=== PATIENT | female | born 1965 | race Caucasian/White ===

== ENCOUNTER → 2018-11-02 | Outpatient (CLI) | payer OTHER ==
--- NOTE | 2018-11-02 15:17 | XR ---
Lumbosacral spine HISTORY: Low back pain 5 views of lumbosacral spine There is no evident spondylolysis or spondylolisthesis. Multilevel spondylosis is present. Loss of di sc height at the intervertebral levels especially L4-5 is noted. Some sclerosis present in the tube builder airplane ior elements compatible with facet arthropathy. Lumbar vertebral bodies show preserved height and bon e mineralization. IMPRESSION: Degenerative disc disease and facet arthropathy.
== END ==
LOC: RADXRYALE 13:31
PROVIDERS: ATTEND Physician Assistant Medical
DX: M51.36 Other intervertebral disc degeneration, lumbar region (principal); M46.96 Unspecified inflammatory spondylopathy, lumbar region
CPT/HCPCS: 72110

== ENCOUNTER → 2018-11-18 | Day surgery (SDC) | payer OTHER ==
[2018-11-15 11:06] VITALS: BMI 27.4
[~2018-11-18] MED LIST: LACTATED RINGERS 1,000 ML IV SCH; LIDOCAINE 1% 20 ML VIAL (10MG/ML) FOR IV START INTRADERMA ONE; LIDOCAINE 1% INJ 10MG/ML (20 ML MDV) ONE; PROPOFOL 10 MG/ML 20 ML VIAL IV ONE
[2018-11-18 10:05] VITALS: RESP 16; TEMP 98.6
--- NOTE | 2018-11-18 11:06 | P.PCN ---
Date of Procedure: 11/18/18 Description of Procedure: BRIEF HISTORY: Patient is a 53-year-old pleasant female scheduled for an elective colonoscopy as a part of high risk colon cancer screening. She reports a family history of colorectal cancer in her father diagnosed in his 60s as well as her to paternal uncles who both past from colon cancer. She denies any change in bowel habits, constipation, diarrhea, melena, unintentional weight loss or blood per rectum. No prior colonoscopy. PROCEDURE PERFORMED: Colonoscopy with polypectomy. PREOPERATIVE DIAGNOSIS: High risk colon cancer screening, family history of colon cancer. ESTIMATED BLOOD LOSS: Minimal. IV sedation per Anesthesia. PROCEDURE: After informed consent was obtained, the patient, was brought into the endoscopy unit. IV sedation was administered by Anesthesia under continuous monitoring. Digital rectal examination was normal. Initially the Olympus CF-190 flexible video colonoscope was then inserted in the rectum, gradually advanced into the cecum without any difficulty. Careful examination was performed as the scope was gradually being withdrawn. Ileocecal valve and the appendiceal orifice were visualized and appeared normal. The terminal ileum was intubated and appeared normal. Prep was excellent. Mucosa of the cecum, ascending colon, transverse colon, descending colon, sigmoid colon, and rectum appeared normal, with 1 small sessile 2 mm sigmoid polyp removed with cold forcep polypectomy. Mild internal hemorrhoids. Retroflexion was performed in the rectum and no lesions were seen. The patient tolerated the procedure well. IMPRESSION: Diminutive sigmoid polyp removed with cold forcep polypectomy. Normal-appearing colon from rectum to cecum. Mild internal hemorrhoids. RECOMMENDATIONS: Findings of this examination were discussed with the patient. Okay to resume diet. Await pathology from biopsy. Anticipate repeat colonoscopy in 5 years given strong family history of colon cancer.
[2018-11-18 11:38] VITALS: BP 105/70; PULSE 60
== END ==
LOC: ORWHC2ENDO 09:38
PROVIDERS: ATTEND Internal Medicine
DX: Z12.11 Encounter for screening for malignant neoplasm of colon (principal); Z80.0 Family history of malignant neoplasm of digestive organs; K63.5 Polyp of colon; K64.8 Other hemorrhoids; Z87.891 Personal history of nicotine dependence; F41.9 Anxiety disorder, unspecified; Z79.899 Other long term (current) drug therapy; Z88.0 Allergy status to penicillin
CPT/HCPCS: 81025; 88305; 45380; J2001; J2704

== ENCOUNTER → 2019-06-27 | Outpatient (CLI) | payer OTHER ==
--- NOTE | 2019-06-27 16:43 | XR ---
EXAMINATION TYPE: XR chest 2V DATE OF EXAM: 06/27/2019 COMPARISON: NONE HISTORY: Cough TECHNIQUE: Frontal and lateral views of the chest are obtained. FINDINGS: There is no focal air space opacity, pleural effusion, or pneumothorax seen. The cardiac silhouette size is within normal limits. The osseous structures are intact. There is bronchial wall thickening. IMPRESSION: Correlate for bronchitis, reactive airways disease, follow-up as indicated
== END ==
LOC: RADXRYALE 14:36
PROVIDERS: ATTEND Physician Assistant Medical
DX: R05 Cough (principal)
CPT/HCPCS: 71046